=== PATIENT | male | born 1955 ===

== ENCOUNTER 2024-05-14 12:00 | Day surgery (SDC) | payer OTHER, BC ==
[2024-05-09 14:04] LABS: Absolute Basophils 0.1 K/uL (0-0.5); Absolute Eosinophils 0.3 K/uL (0-0.5); Absolute Lymphocytes (CBC) 1.6 K/uL (0.7-4.9); Absolute Monocytes 0.9 K/uL (0.1-1.3); Absolute Neutrophil 5.5 K/uL (1.8-8.0); Basophils % 0.9 % (0-1.3); Eosinophils % 3.4 % (0-4.4); Hematocrit 42.1 % (39.6-49.0); Hemoglobin 14.1 g/dL (13.6-17.9); Lymphocytes % 18.7 % (15.3-44.8); MCH 30.1 pg (27.0-35.0); MCHC 33.6 g/dL (32.0-36.0); MCV 89.6 fL (80-100); MPV 10.6 fL (7.6-11.3); Monocytes % 10.9 % (3.3-12.3); Neutrophils % 66.1 % (41.7-73.7); Platelets 138 thou/uL (152-406); RBC Red Blood Cell Count 4.69 M/uL (4.33-5.43)
[2024-05-09 14:07] LABS: PT Prothrombin Time 12.1 SECONDS (9.4-12.5); Protime INR 1.08
--- NOTE | 2024-05-09 18:46 | RAD REPORT ---
EXAMINATION: TWO VIEW CHEST XR CLINICAL INDICATION: Male, 68 years old. [facility] pre op. Hypertension TECHNIQUE: 2 view radiographs of the chest were performed. COMPARISON: No prior exam. FINDINGS: The lungs are well inflated and clear. No pneumothorax or sizable effusion. The heart is normal in si ze. Mediastinal contours are unremarkable. IMPRESSION: No acute or significant abnormalities.
[2024-05-14] MEDS ORDERED: HEPA 1000U/500MLS 2,000 UNIT/1,000 ML BAG IV ONE (12:20)
[2024-05-14] MEDS ORDERED: LIDOCAINE 1% 20 ML MDV ONE (12:21)
[2024-05-14] MEDS ORDERED: HEPARIN 10,000 UNIT/10 ML VIAL IV ONE (12:21)
[2024-05-14] MEDS ORDERED: VERAPAMIL HCL 10 MG/4 ML VIAL IV ONE (12:21)
[2024-05-14] MEDS ORDERED: ATROPINE SULF 1 MG/10 ML SYR IV ONE (12:21)
[2024-05-14] MEDS ORDERED: MIDAZOLAM HCL 2 MG/2 ML INJ ONE (12:21)
[2024-05-14] MEDS ORDERED: CLOPIDOGREL 75 MG TABLET ONE (12:21)
[2024-05-14] MEDS ORDERED: HEPARIN 5000 UNIT/ML 1 ML VIAL ONE (12:22)
[2024-05-14] MEDS ORDERED: TICAGRELOR 90 MG TABLET PO ONE (12:22)
[2024-05-14] MEDS ORDERED: FENTANYL CITR 100 MCG/2 ML ONE (12:23)
[2024-05-14] MEDS ORDERED: ASPIRIN 325 MG TAB ONE (12:23)
[2024-05-14] MEDS ORDERED: HYDRALAZINE HCL 20 MG/ML VIAL ONE (12:40)
--- NOTE | 2024-05-15 01:19 | OP ---
Date of Procedure: 05/14/2024 Surgeon: FREDY DAO Procedures Performed: 1.Selective coronary angiogram. 2.Left heart catheterization. Indication: Chest pain with abnormal stress test. Access: Right radial artery 6-Monegasque, closed with TR band. Complications: None. Bleedin mL. Total Sedation Time: 45 minutes. Description Of Procedure: After risks, benefits, and alternatives were explained, patient agreed to procedure and signed informed consent. The patient was brought into cardiac catheterization laborato , prepped and draped in sterile fashion. Then, I accessed right radial artery using pediatric micr opuncture kit and placed 6-Monegasque Slender sheath and took 5-Monegasque Arverne 4 catheter into aortic root, engaged the RCA, took standard views, and then crossed the aortic valve, measured the LVEDP. Pullba ck did not record any gradient. Then, I exchanged for 6-Monegasque JL3.5 catheter, engaged the left main , took standard views, and removed the catheter and the sheath and placed TR band with good hemostasi s. Findings: 1.Left main: Normal. 2.LAD: Proximal segment is with luminal irregularity with very large lumen. Mid segment after diag onal 2 branch, there is a focal 40% to 50% stenosis. Rest of the LAD is normal. It is large vessel. 3.Ramus intermedius: It has proximal 30% stenosis. 4.Left circumflex has proximal 40% and mid 30%. OM is normal. 5.RCA: Large and dominant proximal 30% stenosis. 6.Elevated LVEDP at 15-20 mmHg. Conclusion: Mild to moderate coronary artery disease with mildly elevated LVEDP. Recommendation: Medical management. SR/MODL Voice ID: [id number] Report ID: [id number]
[2024-05-16 02:14] VITALS: BP 133/87; O2SAT 98
== END 2024-05-14 13:35 | disposition home or self-care (01) ==
LOC: CCL 12:00
PROVIDERS: ATTEND Internal Medicine
PROC: 4A023N7 Measurement of Cardiac Sampling and Pressure, Left Heart, Percutaneous Approach (ICD-10-PCS; principal; 2024-05-14)
PROC: B2111ZZ Fluoroscopy of Multiple Coronary Arteries using Low Osmolar Contrast (ICD-10-PCS; 2024-05-14)
DX: I25.10 Atherosclerotic heart disease of native coronary artery without angina pectoris (principal); I35.1 Nonrheumatic aortic (valve) insufficiency; I49.3 Ventricular premature depolarization; I10 Essential (primary) hypertension; Z79.899 Other long term (current) drug therapy
CPT/HCPCS: 85025; 80048; 36415; 85610; 85730; 71046; 93458; J1644; J0360; J2003; J2250; J3010; J0461